=== PATIENT | female | born 1955 | race Caucasian/White ===

== ENCOUNTER → 2019-02-14 | Outpatient (REF) ==
[~2019-02-14] MED LIST: BACL10TA2 PO; LEVO125T4 PO; MULTCAP PO
--- NOTE | 2019-02-14 11:31 | REP ---
Cervical spine three views AP and lateral projections: There are no comparisons. Vertebral body heights and alignment are normal. There is degenerative disc disease at C 04/05 and 05/06. The facets are normally aligned. Prevertebral soft tissues are normal. There is no listhesis. Impression: Degenerative disc disease at C4-5 and C5-6. Electronically Signed by Tony Pal MD 02/14/2019 11:22 A
== END ==
LOC: M SMT 09:53
PROVIDERS: ATTEND Internal Medicine
DX: Z00.00 Encounter for general adult medical examination without abnormal findings (principal)

== ENCOUNTER → 2019-03-22 | Outpatient (REF) | payer OTHER, MEDICAID | LOC: M SFHCLERA 10:06 | PROVIDERS: ATTEND Family Medicine | DX: E03.9 Hypothyroidism, unspecified (principal) ==

== ENCOUNTER → 2019-05-03 | Outpatient (CLI) | payer OTHER, MEDICAID ==
--- NOTE | 2019-05-03 15:26 | REP ---
Left foot: Four views. History: Left foot pain. Findings: Four views of the left foot demonstrate advanced osteoarthritis at the first MTP joint with sclerosis, joint space narrowing, and spur formation. There is plantar and Achilles calcaneal spurring as well. Minimal midfoot spurring is seen on the lateral and oblique radiographs. Overall mineralization pattern is normal. No erosive changes seen. 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 Heel spurs. Mild midfoot spurring. Electronically Signed by Yash Nolen MD 05/03/2019 04:06 P
== END ==
LOC: M LRY 10:02
PROVIDERS: ATTEND Family Medicine
DX: M77.9 Enthesopathy, unspecified (principal)

== ENCOUNTER → 2019-05-03 | Outpatient (REF) | payer OTHER, MEDICAID | LOC: M SFHCLERA 09:31 | PROVIDERS: ATTEND Family Medicine | DX: E03.9 Hypothyroidism, unspecified (principal) ==

== ENCOUNTER → 2019-05-17 | Outpatient (CLI) | payer MEDICAID, OTHER ==
[~2019-05-17] MED LIST changes: -BACL10TA2 PO; +GASTROGRAFIN SOLUTION 30ML (Q9963) As Ordered ONE; +ISOVUE-370 76% 100ML VIAL (Q9967) As Ordered ONE; -LEVO125T4 PO; -MULTCAP PO
--- NOTE | 2019-05-18 06:13 | REP ---
Clinical: Generalized abdominal pain. Technique: Axial contrast enhanced images from the lung bases to the pubic symphysis using oral (per protocol) and 100 ml Isovue 370 intravenous contrast material with coronal and sagittal re-formations. Comparison: None. Findings: Lung bases demonstrate chronic changes. Visualized heart and pericardium normal. Liver, spleen, pancreas, gallbladder, bilateral adrenal glands and kidneys are essentially normal. Subcentimeter hepatic and right renal hypodensities most compatible with cysts possible 3 mm nonobstructing left renal calculus suggested. The visualized enteric system is without obstruction or acute inflammatory process. Scattered colonic diverticula noted without acute diverticulitis. Impression: 1. 4.5 cm supraumbilical midline fat containing ventral hernia with a 1.8 cm defect. 2. Incidental hepatic hypodensities less than 5 mm and subcentimeter renal hypodensities likely representing cysts but cannot be further characterized by current exam and likely insignificant. 3. Possible 3 mm nonobstructing left renal calculus. 4. Scattered colonic diverticula. Electronically Signed by Feliciano Capone MD 05/18/2019 06:05 A
== END ==
LOC: M RAD 13:04
PROVIDERS: ATTEND Surgery
DX: R10.84 Generalized abdominal pain (principal)
CPT/HCPCS: 74160; Q9963; Q9967

== ENCOUNTER → 2019-06-09 | Outpatient (REF) | payer OTHER, MEDICAID | LOC: M SFHCLERA 14:47 | PROVIDERS: ATTEND Nurse Practitioner Family | DX: N30.00 Acute cystitis without hematuria (principal) ==

== ENCOUNTER → 2019-07-03 | Outpatient (REF) | payer OTHER, MEDICAID ==
[~2019-07-03] MED LIST changes: +BACL10TA2 PO; -GASTROGRAFIN SOLUTION 30ML (Q9963) As Ordered ONE; -ISOVUE-370 76% 100ML VIAL (Q9967) As Ordered ONE; +LEVO125T4 PO; +MULTCAP PO
[2019-07-03 13:25] LABS: BASO # 0.1 10^3/uL (0.0-0.2); BASO % 1.6 % (0.0-1.0); EOS # 0.4 10^3/uL (0.0-0.5); EOS % 5.3 % (0.0-3.0); HEMOGLOBIN 13.8 g/dl (12.0-15.5); LYMPH # 2.1 10^3/uL (1.5-5.0); LYMPH % 30.7 % (24.0-44.0); MEAN CORPUSCULAR HEMOGLOBIN 29.8 pg (27.0-33.0); MEAN CORPUSCULAR HGB CONC 32.9 g/dl (32.0-36.5); MEAN CORPUSCULAR VOLUME 90.7 fl (80.0-96.0); MONO # 0.5 10^3/uL (0.0-0.8); MONO % 6.6 % (0.0-5.0); NEUTROPHILS # 3.8 10^3/uL (1.5-8.5); NEUTROPHILS % 55.5 % (36.0-66.0); PLATELET COUNT, AUTOMATED 288 10^3/uL (150-450); RED BLOOD COUNT 4.63 10^6/uL (4.00-5.40); WHITE BLOOD COUNT 6.8 10^3/uL (4.0-10.0)
[2019-07-03 13:41] LABS: ALBUMIN 3.9 GM/DL (3.2-5.2); ALT/SGPT 19 U/L (12-78); BILIRUBIN,TOTAL 0.5 MG/DL (0.2-1.0); BLOOD UREA NITROGEN 16 MG/DL (7-18); CALCIUM LEVEL 9.8 MG/DL (8.8-10.2); CARBON DIOXIDE LEVEL 31 MEQ/L (21-32); CHLORIDE LEVEL 104 MEQ/L (98-107); CREATININE FOR GFR 0.92 MG/DL (0.55-1.30); GLOMERULAR FILTRATION RATE > 60.0 (>45); GLUCOSE, FASTING 84 MG/DL (70-100); POTASSIUM SERUM 3.9 MEQ/L (3.5-5.1); SODIUM LEVEL 140 MEQ/L (136-145); TOTAL PROTEIN 7.2 GM/DL (6.4-8.2)
== END ==
LOC: M SFHCPLAZ 11:07
PROVIDERS: ATTEND Family Medicine
DX: Z01.818 Encounter for other preprocedural examination (principal)

== ENCOUNTER 2019-07-04 06:05 | Day surgery (SDC) | payer OTHER ==
[~2019-07-04] VITALS: Ht 172.7 cm; Wt 84.3 kg
[~2019-07-04 06:05] MED LIST changes: +LR 1,000 ML IV ONE; +LevoFLOXacin IV 500 MG in IV 1 EA IV ONE
[2019-07-04] MEDS ORDERED: dexameTHASONE 4 MG/ML 1ML VIAL (J1100) As Ordered ONE (06:14)
[2019-07-04] MEDS ORDERED: PROPOFOL 200 MG/20 ML VIAL As Ordered ONE (06:14)
[2019-07-04] MEDS ORDERED: ONDANSETRON 4MG/2ML VIAL (J2405) As Ordered ONE ×2 (06:14→08:39)
[2019-07-04] MEDS ORDERED: LIDOCAINE 2% INJ 100 MG/5 ML SDV (FOR ANES.) As Ordered ONE (06:14)
[2019-07-04] MEDS ORDERED: ROCURONIUM BROMIDE 50 MG/5 ML VIAL As Ordered ONE (06:14)
[2019-07-04] MEDS ORDERED: KETOROLAC 60 MG/2 ML VIAL (J1885) As Ordered ONE (06:14)
[2019-07-04] MEDS ORDERED: MIDAZOLAM INJ 2 MG/2 ML VIAL (J2250) As Ordered ONE (06:20)
[2019-07-04] MEDS ORDERED: fentaNYL 250 MCG/5 ML INJECTION (J3010) As Ordered ONE (06:20)
[2019-07-04] MEDS ORDERED: BUPIVACAINE LIPOSOME/PF 1.3% 20ML VIAL (13.3MG/ML)(EXPAREL)(C9290 PER1MG) As Ordered ONE (06:59)
[2019-07-04] MEDS ORDERED: BUPIVACAINE HCL 0.25% 10 ML VIAL As Ordered ONE (06:59)
[2019-07-04] MEDS: BUPIVACAINE/EPIN 0.25% 30 ML VIAL As Ordered ONE ×2 (07:55→08:00)
[2019-07-04] MEDS ORDERED: ePHEDrine SULFATE 25 MG/5 ML(5MG/ML) SYRINGE As Ordered ONE (08:09)
[2019-07-04] MEDS ORDERED: SUGAMMADEX SODIUM 500 MG/5 ML VIAL (BRIDION) As Ordered ONE (08:09)
--- NOTE | 2019-07-04 08:47 | RO ---
DATE OF PROCEDURE: 07/04/2019 PREOPERATIVE DIAGNOSIS: Epigastric hernia. POSTOPERATIVE DIAGNOSIS: Epigastric hernia. PROCEDURE: Epigastric hernia repair with ventral patch. SURGEON: Dr. Andrea Liriano ANESTHESIA: General endotracheal anesthesia ESTIMATED BLOOD LOSS: Minimal. FLUIDS: Crystalloid. DISPOSITION: The patient was taken to the recovery room awake, alert, hemodynamically stable. BRIEF OPERATIVE SUMMARY: The patient was taken to the operating room and was given general anesthesia. After adequate anesthesia and preoperative antibiotics were given the patient was prepped and draped in sterile fashion. Next, a supraumbilical incision was made with a skin knife. Electrocautery was used cut through dermis, underlying subcutaneous tissue down to the hernia sac itself. The hernia sac was dissected to the level of the fascia. There was a relatively large amount of preperitoneal fat and omentum within the hernia sac itself. Once opening up the hernia sac I was able to transect the hernia sac circumferentially at the level of fascia and the omentum that was coming through this was also transected and some the preperitoneal fat with electrocautery. Once evaluation of the hernia was appreciated, it was over a centimeter and half and length the fascial defect when in a transverse manner the fascia was quite attenuated in this area too and I felt just primary closure would not be adequate. Thus after clearing the posterior rectus in this area/peritoneum in this area off and so that the preperitoneal fat was drop down circumferentially the ventral patch was placed in the peritoneum brought up circumferentially up against the fascia and then the tails of the mesh were sutured superiorly and inferiorly with 0 Ethibond, 0 Ethibond was used close the fascia in a transverse manner with three [id number] sutures. 3-0 Vicryl was used to close the deep subcutaneous tissue and dermis, 4-0 Vicryl was used to approximate the skin. Steri-Strips and dry sterile dressing was applied. The patient was awakened, extubated, brought to the recovery room awake, alert, and hemodynamically stable. Sponge and needle counts correct times two.
[2019-07-04] MEDS ORDERED: METOCLOPRAMIDE INJ 10MG/2ML VIAL (J2765) IV PRN (09:00)
[2019-07-04] MEDS ORDERED: ONDANSETRON 4MG/2ML VIAL (J2405) IV PRN (09:00)
[2019-07-04] MEDS ORDERED: oxyCODONE 5MG TAB PO PRN (09:00)
[2019-07-04] MEDS ORDERED: fentaNYL 100 MCG/2 ML INJECTION (J3010) IV PRN (09:00)
[2019-07-04] MEDS ORDERED: LR 1,000 ML IV SCH ×2 (09:00)
[2019-07-04 12:15] VITALS: BP 125/80
[2019-07-04] MEDS ORDERED: ACETAMINOPHEN 500 MG TAB As Ordered ONE (12:28)
[2019-07-04] MEDS ORDERED: ACETAMINOPHEN 500 MG TAB PO ONE (13:00)
== END 2019-07-04 12:38 | disposition home or self-care (01) ==
LOC: M SDC 06:05
PROVIDERS: ATTEND Surgery
DX: K43.9 Ventral hernia without obstruction or gangrene (principal); E03.9 Hypothyroidism, unspecified; K21.9 Gastro-esophageal reflux disease without esophagitis; G35 Multiple sclerosis; F17.218 Nicotine dependence, cigarettes, with other nicotine-induced disorders; Z79.899 Other long term (current) drug therapy; Z88.0 Allergy status to penicillin; Z88.8 Allergy status to other drugs, medicaments and biological substances
CPT/HCPCS: 49585; 88302; C1781; C9290; J1100; J1885; J1956; J2250; J2405; J3010

== ENCOUNTER → 2019-09-18 | Outpatient (CLI) | payer OTHER ==
[~2019-09-18] MED LIST changes: -LR 1,000 ML IV ONE; -LevoFLOXacin IV 500 MG in IV 1 EA IV ONE
--- NOTE | 2019-09-22 15:10 | REPMRS ---
Patient History The patient states she has not had a clinical breast exam in over a year. Patient is postmenopausal and had first child at age 40. Family history of unknown cancer in paternal grandfather. Digital Woman Screen Mammo: September 18, 2019 - Exam #: [id number] Bilateral CC and MLO view(s) were taken. Technologist: Sole Castillo, Technologist Prior study comparison: March 28, 2012, bilateral digital woman screen mammo, performed at [facility]. FINDINGS: There are scattered fibroglandular densities. There has been no change in the appearance of the mammogram from the prior studies. There is a mild amount of scattered fibroglandular density which is fairly symmetric. There is no interval development of dominant mass, architectural distortion, or grouped microcalcification suggestive of malignancy. 3-D tomosynthesis shows no additional findings. Assessment: BI-RADS/ACR category 1 mammogram. Negative Mammogram. Recommendation Routine screening mammogram of both breasts in 1 year (for women over age 40). This patient's Lifetime Breast Cancer Risk is estimated at 10.1 %. This mammogram was interpreted with the aid of an FDA-approved computer-aided dectection system. Electronically Signed By: Luigi Nolen MD 09/22/19 1037
== END ==
LOC: M WHC 10:37
PROVIDERS: ATTEND Family Medicine
DX: Z12.31 Encounter for screening mammogram for malignant neoplasm of breast (principal); Z78.0 Asymptomatic menopausal state

== ENCOUNTER → 2020-06-19 | Outpatient (CLI) | payer OTHER, MEDICAID ==
[2020-06-19 16:41] LABS: BASO # 0.1 10^3/uL (0.0-0.2); EOS # 0.3 10^3/uL (0.0-0.5); EOS % 3.1 % (0.0-3.0); HEMATOCRIT 43.5 % (36.0-47.0); HEMOGLOBIN 14.1 g/dl (12.0-15.5); LYMPH # 2.3 10^3/uL (1.5-5.0); LYMPH % 26.8 % (24.0-44.0); MEAN CORPUSCULAR HEMOGLOBIN 28.9 pg (27.0-33.0); MEAN CORPUSCULAR HGB CONC 32.4 g/dl (32.0-36.5); MEAN CORPUSCULAR VOLUME 89.1 fl (80.0-96.0); MONO # 0.5 10^3/uL (0.0-0.8); MONO % 5.9 % (0.0-5.0); NEUTROPHILS # 5.5 10^3/uL (1.5-8.5); PLATELET COUNT, AUTOMATED 286 10^3/uL (150-450); RED BLOOD COUNT 4.88 10^6/uL (4.00-5.40); WHITE BLOOD COUNT 8.7 10^3/uL (4.0-10.0)
[2020-06-19 16:46] LABS: TOTAL PROTEIN 7.2 GM/DL (6.4-8.2)
[2020-06-19 16:47] LABS: ALBUMIN 4.1 GM/DL (3.2-5.2); ALT/SGPT 19 U/L (12-78); BILIRUBIN,TOTAL 0.4 MG/DL (0.2-1.0); BLOOD UREA NITROGEN 18 MG/DL (7-18); CALCIUM LEVEL 9.5 MG/DL (8.8-10.2); CARBON DIOXIDE LEVEL 27 MEQ/L (21-32); CHLORIDE LEVEL 105 MEQ/L (98-107); GLOMERULAR FILTRATION RATE > 60.0 (>45); GLUCOSE, FASTING 86 MG/DL (70-100); RHEUMATOID FACTOR QUANT < 10.0 IU/ML (<15.0); SODIUM LEVEL 138 MEQ/L (136-145); TOTAL PROTEIN 7.3 GM/DL (6.4-8.2)
[2020-06-19 16:56] LABS: HEPATITIS B SURFACE ANTIBODY NEGATIVE (POSITIVE); VITAMIN B12 LEVEL 469 PG/ML
[2020-06-19 16:57] LABS: FOLATE 23.6 NG/ML
[2020-06-19 17:15] LABS: ERYTHROCYTE SEDIMENTATION RATE 7 mm/hr (0-30)
[2020-06-20 15:40] LABS: ALBUMIN 4.49 GM/DL (3.29-5.55); ALBUMIN % 62.4 % (55.8-66.1); ALPHA-1-GLOBULIN % 4.2 % (2.9-4.9); ALPHA-2-GLOBULINS 0.78 GM/DL (0.42-0.99); ALPHA-2-GLOBULINS % 10.9 % (7.1-11.8); BETA-1-GLOBULINS 0.39 GM/DL (0.28-0.60); BETA-1-GLOBULINS % 5.4 % (4.7-7.2); BETA-2-GLOBULINS 0.32 GM/DL (0.19-0.55); BETA-2-GLOBULINS % 4.4 % (3.2-6.5); GAMMA GLOBULIN % 12.7 % (11.1-18.8); GAMMA GLOBULINS 0.91 GM/DL (0.65-1.58)
== END ==
LOC: M WUC 12:33
PROVIDERS: ATTEND Psychiatry & Neurology Neurology
DX: G35 Multiple sclerosis (principal); G62.9 Polyneuropathy, unspecified

== ENCOUNTER → 2020-07-31 | Outpatient (CLI) | payer OTHER ==
--- NOTE | 2020-07-31 09:03 | REP ---
INDICATION: Z87.442 HX URINARY CALCULI/R10.9 ABDOMINAL PAIN COMPARISON: None TECHNIQUE: Real time marino scale and color B-mode ultrasound examination using curved array transducer. FINDINGS: The bilateral kidneys are normal in contour, size, echogenicity, intrarenal vascularity and reniform shape without hydronephrosis or obvious nephrolithiasis. No perinephric fluid collection. Bladder is normal in appearance currently measuring 7.8 x 7.8 x 4.5 cm. Right kidney measures 10.0 x 4.9 x 4.8 cm (RI 0.62) and includes 1.1 cm midpole simple cyst. Left kidney measures 12.2 x 4.4 x 4.8 cm (RI 0.49) without obvious cystic change. IMPRESSION: Normal renal ultrasound. Incidental 1.1 cm simple right renal cyst. <Electronically signed by Feliciano Capone > 07/31/20 0801
== END ==
LOC: M WHC 08:27
PROVIDERS: ATTEND Nurse Practitioner Family
DX: R10.9 Unspecified abdominal pain (principal); Z87.442 Personal history of urinary calculi

== ENCOUNTER → 2020-11-18 | Outpatient (REF) | payer OTHER | LOC: M LABWUC 15:34 | PROVIDERS: ATTEND Family Medicine | DX: E03.9 Hypothyroidism, unspecified (principal) ==

== ENCOUNTER → 2021-02-26 | Outpatient (CLI) | payer OTHER | LOC: M WUC 11:38 | PROVIDERS: ATTEND Family Medicine | DX: E03.9 Hypothyroidism, unspecified (principal) ==

== ENCOUNTER → 2021-07-18 | Outpatient (CLI) | payer MEDICARE, OTHER | LOC: M RAD 09:10 | PROVIDERS: ATTEND Family Medicine | DX: Z12.2 Encounter for screening for malignant neoplasm of respiratory organs (principal) ==

== ENCOUNTER → 2021-09-22 | Outpatient (CLI) | payer OTHER ==
[2021-09-22 16:33] LABS: ALBUMIN 3.8 GM/DL (3.2-5.2); ALT/SGPT 20 U/L (12-78); BILIRUBIN,TOTAL 0.3 MG/DL (0.2-1.0); BLOOD UREA NITROGEN 20 MG/DL (7-18); CALCIUM LEVEL 9.4 MG/DL (8.8-10.2); CARBON DIOXIDE LEVEL 26 MEQ/L (21-32); CHLORIDE LEVEL 107 MEQ/L (98-107); CHOLESTEROL LEVEL 234 MG/DL (<200); CHOLESTEROL RISK RATIO 3.162 (<5); CREATININE FOR GFR 0.97 MG/DL (0.55-1.30); GLOMERULAR FILTRATION RATE > 60.0 (>45); GLUCOSE, FASTING 90 MG/DL (70-100); HDL CHOLESTEROL 74 MG/DL (>40); LDL CHOLESTEROL 138 MG/DL (<100); NON-HDL-C 160 MG/DL; SODIUM LEVEL 141 MEQ/L (136-145); TOTAL PROTEIN 6.9 GM/DL (6.4-8.2); TRIGLYCERIDES LEVEL 111 MG/DL (<150)
[2021-09-22 16:36] LABS: HEMOGLOBIN A1c 5.8 %
== END ==
LOC: M WUC 11:09
PROVIDERS: ATTEND Family Medicine
DX: Z13.1 Encounter for screening for diabetes mellitus (principal); Z13.220 Encounter for screening for lipoid disorders; E03.9 Hypothyroidism, unspecified

== ENCOUNTER → 2021-10-01 | Outpatient (CLI) | payer MEDICARE, OTHER | LOC: M WHC 09:53 | PROVIDERS: ATTEND Family Medicine | DX: Z12.31 Encounter for screening mammogram for malignant neoplasm of breast (principal) ==

== ENCOUNTER → 2021-10-08 | Outpatient (CLI) | payer MEDICARE, OTHER | LOC: M SOG 08:14 | PROVIDERS: ATTEND Physician Assistant | DX: M19.011 Primary osteoarthritis, right shoulder (principal); M25.511 Pain in right shoulder ==

== ENCOUNTER → 2021-12-13 | Outpatient (CLI) | payer MEDICARE, OTHER ==
[~2021-12-13] MED LIST changes: +EUTH100T; +MULT-90 PO
== END ==
LOC: M LABSMTC 09:26
PROVIDERS: ATTEND Anesthesiology
DX: Z01.812 Encounter for preprocedural laboratory examination (principal); Z20.822 Contact with and (suspected) exposure to COVID-19

== ENCOUNTER 2021-12-18 09:06 | Day surgery (SDC) | payer MEDICARE, OTHER ==
[~2021-12-18] VITALS: Ht 172.7 cm; Wt 77.6 kg
[~2021-12-18 09:06] MED LIST changes: +NS 1,000 ML IV ONE
[2021-12-18] MEDS ORDERED: propofoL 200 MG/20 ML VIAL As Ordered ONE (09:25)
[2021-12-18] MEDS ORDERED: LIDOCAINE 2% 100MG/5ML SDV (FOR ANES.) As Ordered ONE (09:25)
[2021-12-18 12:00] VITALS: BP 110/75
== END 2021-12-18 12:09 | disposition home or self-care (01) ==
LOC: M OPP 09:06
PROVIDERS: ATTEND Surgery
DX: Z12.11 Encounter for screening for malignant neoplasm of colon (principal); Z86.010 Personal history of colon polyps; K57.30 Diverticulosis of large intestine without perforation or abscess without bleeding; E03.9 Hypothyroidism, unspecified; R42 Dizziness and giddiness; M19.90 Unspecified osteoarthritis, unspecified site; G35 Multiple sclerosis; F17.210 Nicotine dependence, cigarettes, uncomplicated; Z88.0 Allergy status to penicillin; Z88.8 Allergy status to other drugs, medicaments and biological substances; Z79.899 Other long term (current) drug therapy

== ENCOUNTER → 2022-10-07 | Outpatient (CLI) | payer MEDICARE, OTHER ==
[~2022-10-07] MED LIST changes: -NS 1,000 ML IV ONE
[2022-10-07 14:03] LABS: HEMOGLOBIN A1c 5.8 % (4.0-6.0)
[2022-10-07 14:16] LABS: CHOLESTEROL RISK RATIO 2.92 (<5); HDL CHOLESTEROL 73.2 MG/DL (>40); LDL CHOLESTEROL 121.6 MG/DL (<100); NON-HDL-C 140.8 MG/DL
== END ==
LOC: M RAD 12:02
PROVIDERS: ATTEND Student in an Organized Health Care Education/Training Program
DX: Z12.2 Encounter for screening for malignant neoplasm of respiratory organs (principal); Z12.31 Encounter for screening mammogram for malignant neoplasm of breast; F17.210 Nicotine dependence, cigarettes, uncomplicated; R73.03 Prediabetes; Z79.899 Other long term (current) drug therapy

== ENCOUNTER → 2022-10-07 | Outpatient (CLI) | payer MEDICARE, OTHER | LOC: M WHC 11:00 | PROVIDERS: ATTEND Student in an Organized Health Care Education/Training Program | DX: Z12.31 Encounter for screening mammogram for malignant neoplasm of breast (principal) ==

== ENCOUNTER → 2023-09-22 | Outpatient (REF) | payer MEDICARE, OTHER ==
[2023-09-22 19:15] LABS: RSV AMPLIFICATION NEGATIVE (NEGATIVE)
== END ==
LOC: M SFHCLERA 16:56
PROVIDERS: ATTEND Physician Assistant
DX: J22 Unspecified acute lower respiratory infection (principal)

== ENCOUNTER → 2024-01-28 | Outpatient (CLI) | payer OTHER | LOC: M RAD 07:56 | PROVIDERS: ATTEND Physician Assistant | DX: F17.210 Nicotine dependence, cigarettes, uncomplicated (principal); Z12.2 Encounter for screening for malignant neoplasm of respiratory organs ==

== ENCOUNTER → 2024-02-26 | Outpatient (CLI) | payer OTHER | LOC: M RAD 10:57 | PROVIDERS: ATTEND Physician Assistant | DX: M17.11 Unilateral primary osteoarthritis, right knee (principal) ==

== ENCOUNTER → 2024-02-28 | Outpatient (CLI) | payer OTHER | LOC: M SOG 07:55 | PROVIDERS: ATTEND Physician Assistant | DX: Z53.9 Procedure and treatment not carried out, unspecified reason (principal) ==

== ENCOUNTER → 2024-03-28 | Outpatient (CLI) | payer OTHER | LOC: M SOG 07:53 | PROVIDERS: ATTEND Physician Assistant | DX: M25.511 Pain in right shoulder (principal) ==

== ENCOUNTER → 2024-06-15 | Outpatient (REF) | payer OTHER ==
[2024-06-15 18:12] LABS: THYROID STIMULATING HORMONE 0.884 uIU/ML (0.55-4.78)
[2024-06-15 18:13] LABS: FREE T4 1.35 NG/DL (0.89-1.76)
[2024-06-15 18:16] LABS: HEMOGLOBIN A1c 5.6 % (4.0-6.0)
== END ==
LOC: M SFHCLERA 10:35
DX: R73.03 Prediabetes (principal); E03.9 Hypothyroidism, unspecified